=== PATIENT | female | born 1985 | race Caucasian/White ===

== ENCOUNTER 2019-04-10 20:21 | Emergency (ER) | payer SELFPAY ==
[~2019-04-10] VITALS: Ht 157.5 cm; Wt 64.2 kg
[~2019-04-10 20:21] MED LIST: BACTRIM DS1 TAB PO; BACTROBAN2 % TOP; CEPHALEXIN500 MG PO; CLEOCIN300 MG PO; LORTAB 10-325 M1 TAB PO; LORTAB 5-325 MG1 TAB PO; MUPIROCIN2 % EX; OXYCODONE HCL5 MG PO
[2019-04-10] MEDS ORDERED: BACTRIM DS1 TAB PO (21:37)
[2019-04-10 21:41] VITALS: BP 117/81
== END 2019-04-10 21:41 | disposition home or self-care (01) | DRG 603 ==
LOC: ED 20:21
DX: L03.213 Periorbital cellulitis (principal); F17.200 Nicotine dependence, unspecified, uncomplicated

== ENCOUNTER 2019-04-12 02:11 | Emergency (ER) | payer SELFPAY ==
[~2019-04-12] VITALS: Ht 157.5 cm; Wt 70.0 kg
[2019-04-12] MEDS ORDERED: TRAMADOL HCL50 MG PO (02:47)
[2019-04-12 02:55] VITALS: BP 128/89
== END 2019-04-12 02:57 | disposition home or self-care (01) | DRG 603 ==
LOC: ED 02:11
PROC: 0H91XZZ Drainage of Face Skin, External Approach (ICD-10-PCS; principal; 2019-04-12)
DX: L02.01 Cutaneous abscess of face (principal); H57.11 Ocular pain, right eye; R22.0 Localized swelling, mass and lump, head; F17.210 Nicotine dependence, cigarettes, uncomplicated

== ENCOUNTER 2019-07-29 05:41 | Emergency (ER) | payer SELFPAY ==
[~2019-07-29] VITALS: Ht 157.5 cm; Wt 50.0 kg
[~2019-07-29 05:41] MED LIST changes: +TRAMADOL HCL50 MG PO
[2019-07-29] MEDS ORDERED: BACTRIM DS1 TAB PO (06:10)
[2019-07-29 06:15] VITALS: BP 124/83
== END 2019-07-29 06:24 | disposition home or self-care (01) | DRG 603 ==
LOC: ED 05:41
DX: L03.011 Cellulitis of right finger (principal); F17.210 Nicotine dependence, cigarettes, uncomplicated

== ENCOUNTER 2024-09-17 00:14 | Emergency (ER) | payer SELFPAY ==
[~2024-09-17] VITALS: Ht 157.5 cm; Wt 50.0 kg
[2024-09-17] MEDS ORDERED: DEXAMETHASONE 2 MG/TAB TAB PO ONE (01:45)
[2024-09-17] MEDS ORDERED: LIDOCAINE VISCOUS 2% 15 ML UDC PO ONE (01:45)
[2024-09-17] MEDS ORDERED: AZITHROMYCIN500 MG PO (02:25)
[2024-09-17] MEDS ORDERED: LIDOCAINE21 MT (02:25)
[2024-09-17] MEDS ORDERED: AZITHROMYCIN 250 MG/TAB PO ONE (02:25)
[2024-09-17 03:24] VITALS: BP 139/83
== END 2024-09-17 03:24 | disposition home or self-care (01) | DRG 153 ==
LOC: ED 00:14
DX: J02.9 Acute pharyngitis, unspecified (principal); F17.200 Nicotine dependence, unspecified, uncomplicated; Z20.822 Contact with and (suspected) exposure to COVID-19